=== PATIENT | female | born 1975 | race Caucasian/White ===

== ENCOUNTER → 2020-08-09 | Outpatient (CLI) | payer OTHER ==
--- NOTE | 2020-08-09 12:21 | REP ---
INDICATION: RIGHT BREAST 6 MO F/U/ABN MAMMO. COMPARISON: Comparison right breast mammography 02/08/2020, 02/01/2020, and 01/09/2017. TECHNIQUE: Routine views of the right breast are augmented by magnified focal spot-compression CC view, true mediolateral view, and 3D tomography. This mammogram was interpreted with the aid of an FDA-approved computer-aided detection system. FINDINGS: Scattered fibroglandular elements are noted. The area in question on the February 01, 2020 and February 08, 2020 prior mammography is seen to compress awaited normal appearing stromal elements. No spiculation or mass lesion is seen here sonography was previously negative and is not repeated. No suspicious mammographic abnormality. The [facility] volumetric breast density pattern is B. : IMPRESSION: BIRADS/ACR category 1 negative right breast mammographic findings. This patient's Tyrer-Cuzick lifetime breast cancer risk assessment score is 13.8%. RECOMMENDATION: Bilateral screening mammography can resume in the fall of 2020.. The patient letter being requested is M1. <Electronically signed by Martin Edwards > 08/09/20 [id number]
== END ==
LOC: M WHC 11:20
PROVIDERS: ATTEND Family Medicine
DX: R92.8 Other abnormal and inconclusive findings on diagnostic imaging of breast (principal)
CPT/HCPCS: 77065; G0279

== ENCOUNTER → 2020-10-01 | Outpatient (CLI) | payer OTHER ==
--- NOTE | 2020-10-01 13:43 | REPPI ---
INDICATION: M70.62 TROCHANTERIC BURSITIS OF LEFT HIP COMPARISON: None. TECHNIQUE: AP and frog-lateral views of the left hip FINDINGS: Generalized age-related changes include subtle increased sclerosis to the acetabulum with minimal spurring. No further overt osteoarthritic or significant degenerative changes are appreciated. No evidence for acute or healed injury. Surrounding soft tissues are normal. IMPRESSION: Mild generalized age-related changes. <Electronically signed by Hill Barriga > 10/01/20 [id number]
--- NOTE | 2020-10-01 13:52 | REPPI ---
INDICATION: M19.049 OSTEOARTHRITIS OF HAND UNSPECIFIED TYPE COMPARISON: None. TECHNIQUE: AP, lateral, bilateral oblique views right and left hand. FINDINGS: Right and left hand demonstrate mild relatively symmetric increased sclerosis and joint space narrowing at the interphalangeal joints. Remainder of the examination is normal bilaterally. No further overt osteoarthritic or inflammatory arthritic changes appreciated. IMPRESSION: Very mild degenerative changes at the interphalangeal joints. <Electronically signed by Hill Barriga > 10/01/20 [id number]
--- NOTE | 2020-10-01 14:10 | REPPI ---
INDICATION: M17.10 OSTEOARTHRITIS OF KNEE COMPARISON: None. TECHNIQUE: AP, lateral, bilateral oblique and sunrise views right and left knee. FINDINGS: Right knee demonstrates mild increased sclerosis to the tibial plateau and posterior patellar margin along with very subtle marginal spurring primarily involving the patella with joint space narrowing. No acute fracture or dislocation. No periarticular calcifications or chondrocalcinosis. No effusion. Left knee demonstrates cortical irregularity to the femoral condyles with minimal increased sclerosis along the tibial plateau and posterior patellar margin with minimal patellofemoral joint space narrowing. No periarticular calcifications or chondrocalcinosis. No effusion. No acute fracture or dislocation. IMPRESSION: Mild arthritic changes (right greater than left). <Electronically signed by Hill Barriga > 10/01/20 [id number]
== END ==
LOC: M PLAIMG 08:09
PROVIDERS: ATTEND Internal Medicine
DX: M17.10 Unilateral primary osteoarthritis, unspecified knee (principal); M19.049 Primary osteoarthritis, unspecified hand; M70.62 Trochanteric bursitis, left hip

== ENCOUNTER → 2020-12-21 | Outpatient (CLI) | payer OTHER ==
--- NOTE | 2020-12-21 13:04 | REP ---
INDICATION: S/P ABD TRAUMA, EVAL FOR ABNORMALITY/HEMATOMA. COMPARISON: None. TECHNIQUE: Real-time sonographic evaluation of right upper quadrant performed. FINDINGS: The gallbladder demonstrates no evidence of intraluminal sludge or calculi, wall thickening or pericholecystic fluid. There is no intrahepatic or extrahepatic biliary dilatation, common bile duct measures 5 mm in maximum diameter. The liver demonstrates homogeneous echotexture with no gross mass. The pancreas demonstrates homogeneous echotexture with no gross mass. The right kidney demonstrates no hydronephrosis, with a normal size of 13.0 cm in length. No free fluid is seen. IMPRESSION: Negative right upper quadrant ultrasound. <Electronically signed by Lazaro Lebron > 12/21/20 [id number]
== END ==
LOC: M RAD 12:29
PROVIDERS: ATTEND Physician Assistant
DX: S30.1XXA Contusion of abdominal wall, initial encounter (principal); X58.XXXA Exposure to other specified factors, initial encounter; Y92.9 Unspecified place or not applicable

== ENCOUNTER → 2021-03-18 | Outpatient (CLI) | payer OTHER ==
[~2021-03-18] MED LIST: GASTROGRAFIN SOLUTION 30ML (Q9963) As Ordered ONE; ISOVUE-370 76% 100ML VIAL As Ordered ONE
--- NOTE | 2021-03-18 13:27 | REP ---
INDICATION: CONTUSION OF ABD WALL, ABD PAIN. COMPARISON: None. TECHNIQUE: Standard helical technique after the intravenous administration of 100 cc Isovue 370 and oral bowel preparatory contrast administration. FINDINGS: The lung bases are clear. The liver, gallbladder, spleen, pancreas, adrenal glands, and right kidney are within normal limits. The left kidney is absent. The abdominal aorta and para-aortic regions are within normal limits. The bowel loops and the mesenteries are within normal limits. There is no evidence of free fluid or free air.. 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 IMPRESSION: There is no evidence of acute disease. 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 <Electronically signed by Stanford Trotter > 03/18/21 [id number]
== END ==
LOC: M RAD 10:56
PROVIDERS: ATTEND Physician Assistant
DX: R10.9 Unspecified abdominal pain (principal); S30.1XXD Contusion of abdominal wall, subsequent encounter
CPT/HCPCS: 74177; Q9963; Q9967

== ENCOUNTER → 2021-03-19 | Outpatient (CLI) | payer OTHER ==
--- NOTE | 2021-03-19 17:06 | REP ---
INDICATION: THYROID NODULES-XRAY AFTER. COMPARISON: None. TECHNIQUE: Real-time sonographic evaluation of the thyroid with Doppler FINDINGS: The right lobe of the thyroid gland measures 5.2 x 2.8 x 2.7 cm and the left lobe measures 5.5 x 1.5 x 1.8 cm. The isthmus measures 6 mm. In the right lobe of the thyroid gland there is a 2.9 x 2.2 x 2.2 cm sized solid nodule. In the inferior pole there is an additional 6 mm sized solid nodule. In the isthmus there is a 1 cm sized solid nodule. In the left lobe of the thyroid gland in the upper pole region there is a 1.3 cm sized nodule and in the midpole region there is a 1.2 cm sized nodule. IMPRESSION: Bilateral thyroid gland nodules as described above. Consider radio iodide 123 thyroid scintigraphy. <Electronically signed by Stanford Trotter > 03/19/21 [id number]
--- NOTE | 2021-03-19 20:37 | REP ---
INDICATION: THYROID NODULES-US APPT FIRST. COMPARISON: None. TECHNIQUE: Two views FINDINGS: The lungs are well inflated and clear. Heart mediastinum are unremarkable. The airway is not displaced from midline at the thoracic inlet. Bones are unremarkable. No free air. IMPRESSION: Normal chest. <Electronically signed by Orlando Abdi > 03/19/210
== END ==
LOC: M RAD 16:21
PROVIDERS: ATTEND Physician Assistant
DX: E04.1 Nontoxic single thyroid nodule (principal)

== ENCOUNTER → 2021-04-01 | Outpatient (REF) | payer OTHER | LOC: M LAB REF 19:13 | PROVIDERS: ATTEND Internal Medicine Endocrinology, Diabetes & Metabolism | DX: E04.2 Nontoxic multinodular goiter (principal) ==

== ENCOUNTER → 2021-06-05 | Outpatient (CLI) | payer OTHER | LOC: M PLAIMG 07:04 | PROVIDERS: ATTEND Internal Medicine | DX: M79.673 Pain in unspecified foot (principal) ==

== ENCOUNTER → 2021-06-17 | Outpatient (CLI) | payer OTHER ==
[~2021-06-17] MED LIST changes: -GASTROGRAFIN SOLUTION 30ML (Q9963) As Ordered ONE
== END ==
LOC: M RAD 13:02
PROVIDERS: ATTEND Family Medicine
DX: R59.0 Localized enlarged lymph nodes (principal); E07.9 Disorder of thyroid, unspecified
CPT/HCPCS: 70491; 71260; Q9967

== ENCOUNTER → 2021-08-29 | Outpatient (CLI) | payer OTHER | LOC: M WHC 13:27 | PROVIDERS: ATTEND Family Medicine | DX: Z12.31 Encounter for screening mammogram for malignant neoplasm of breast (principal) ==

== ENCOUNTER → 2021-10-05 | Outpatient (CLI) | payer OTHER | LOC: M LABSMTC 11:26 | PROVIDERS: ATTEND Anesthesiology | DX: Z01.818 Encounter for other preprocedural examination (principal); Z11.52 Encounter for screening for COVID-19 ==

== ENCOUNTER 2021-10-10 11:08 | Day surgery (SDC) | payer OTHER ==
[~2021-10-10] VITALS: Ht 172.7 cm; Wt 64.8 kg
[~2021-10-10 11:08] MED LIST changes: -ISOVUE-370 76% 100ML VIAL As Ordered ONE; +NS 1,000 ML IV ONE
[2021-10-10] MEDS ORDERED: SIMETHICONE 40MG/0.6ML DROPS 30ML As Ordered ONE (12:18)
[2021-10-10] MEDS ORDERED: propofoL 200 MG/20 ML VIAL As Ordered ONE (12:26)
[2021-10-10] MEDS ORDERED: LIDOCAINE 2% 100MG/5ML SDV (FOR ANES.) As Ordered ONE (12:26)
[2021-10-10 12:58] VITALS: BP 97/68
== END 2021-10-10 13:00 | disposition home or self-care (01) ==
LOC: M OPP 11:08
PROVIDERS: ATTEND Surgery
DX: Z12.11 Encounter for screening for malignant neoplasm of colon (principal); Z79.899 Other long term (current) drug therapy; Z88.0 Allergy status to penicillin; Z88.2 Allergy status to sulfonamides; Z88.6 Allergy status to analgesic agent

== ENCOUNTER → 2022-05-30 | Outpatient (CLI) | payer OTHER ==
[~2022-05-30] MED LIST changes: +ISOVUE-370 76% 100ML VIAL As Ordered ONE; -NS 1,000 ML IV ONE
[2022-05-30 14:41] LABS: BASO % 0.4 % (0.0-1.0); EOS # 0.1 10^3/uL (0.0-0.5); EOS % 1.2 % (0.0-3.0); HEMATOCRIT 41.2 % (36.0-47.0); HEMOGLOBIN 13.2 g/dl (12.0-15.5); LYMPH # 1.4 10^3/uL (1.5-5.0); LYMPH % 25.4 % (24.0-44.0); MEAN CORPUSCULAR HEMOGLOBIN 29.5 pg (27.0-33.0); MEAN CORPUSCULAR VOLUME 92.2 fl (80.0-96.0); MONO # 0.5 10^3/uL (0.0-0.8); MONO % 8.3 % (2.0-8.0); NEUTROPHILS # 3.7 10^3/uL (1.5-8.5); NEUTROPHILS % 64.7 % (36.0-66.0); PLATELET COUNT, AUTOMATED 210 10^3/uL (150-450); RED BLOOD COUNT 4.47 10^6/uL (4.00-5.40); WHITE BLOOD COUNT 5.7 10^3/uL (4.0-10.0)
[2022-05-30 15:02] LABS: ERYTHROCYTE SEDIMENTATION RATE 28 mm/hr (0-20)
[2022-05-30 15:12] LABS: C REACTIVE PROTEIN QUANTITATIV < 0.40 MG/DL (<1.0)
[2022-05-30 15:18] LABS: ALBUMIN 3.9 G/DL (3.2-5.2); ALKALINE PHOSPHATASE 79 U/L (46-116); ALT/SGPT 22 U/L (7.0-40); AST/SGOT 21 U/L (<34); BILIRUBIN,TOTAL 0.4 MG/DL (0.3-1.2); BLOOD UREA NITROGEN 14 MG/DL (9-23); CALCIUM LEVEL 9.4 MG/DL (8.5-10.1); CARBON DIOXIDE LEVEL 27 MMOL/L (20-31); CHLORIDE LEVEL 104 MMOL/L (98-107); CREATININE FOR GFR 0.75 MG/DL (0.55-1.30); FREE T4 1.04 NG/DL (0.89-1.76); GLOMERULAR FILTRATION RATE > 60.0 (>58); GLUCOSE, FASTING 92 MG/DL (60-100); POTASSIUM SERUM 4.2 MMOL/L (3.5-5.1); SODIUM LEVEL 139 MMOL/L (136-145); THYROID STIMULATING HORMONE 1.046 uIU/ML (0.55-4.78); TOTAL PROTEIN 7.3 G/DL (5.7-8.2)
== END ==
LOC: M LAB 13:58
PROVIDERS: ATTEND Nurse Practitioner Adult Health
DX: E04.2 Nontoxic multinodular goiter (principal); R22.1 Localized swelling, mass and lump, neck

== ENCOUNTER → 2022-06-03 | Outpatient (CLI) | payer OTHER | LOC: M RAD 09:05 | PROVIDERS: ATTEND Nurse Practitioner Adult Health | DX: R22.1 Localized swelling, mass and lump, neck (principal) ==

== ENCOUNTER → 2022-10-17 | Outpatient (CLI) | payer OTHER ==
[~2022-10-17] MED LIST changes: -ISOVUE-370 76% 100ML VIAL As Ordered ONE; +SYNT100T
== END ==
LOC: M WHC 07:36
PROVIDERS: ATTEND Family Medicine
DX: Z12.31 Encounter for screening mammogram for malignant neoplasm of breast (principal); N63.21 Unspecified lump in the left breast, upper outer quadrant

== ENCOUNTER → 2022-11-05 | Outpatient (CLI) | payer OTHER | LOC: M WHC 09:01 | PROVIDERS: ATTEND Family Medicine | DX: R92.8 Other abnormal and inconclusive findings on diagnostic imaging of breast (principal); N60.02 Solitary cyst of left breast ==

== ENCOUNTER → 2022-11-27 | Outpatient (CLI) | payer OTHER ==
[2022-11-27 17:47] LABS: FREE T4 1.22 NG/DL (0.89-1.76); THYROID STIMULATING HORMONE 1.348 uIU/ML (0.55-4.78)
[2022-11-27 17:51] LABS: TOTAL 25(OH) VITAMIN D 34.9 NG/ML (20.0-100.0)
== END ==
LOC: M WUC 14:39
PROVIDERS: ATTEND Family Medicine
DX: E89.0 Postprocedural hypothyroidism (principal)

== ENCOUNTER → 2023-03-11 | Outpatient (CLI) | payer OTHER ==
[2023-03-11 12:08] LABS: C REACTIVE PROTEIN QUANTITATIV < 0.40 MG/DL (<1.0)
[2023-03-11 12:10] LABS: ALBUMIN 3.7 G/DL (3.2-5.2); ALKALINE PHOSPHATASE 72 U/L (46-116); ALT/SGPT 11 U/L (7.0-40); AST/SGOT 13 U/L (<34); BILIRUBIN,TOTAL 0.7 MG/DL (0.3-1.2); BLOOD UREA NITROGEN 6 MG/DL (9-23); CALCIUM LEVEL 8.8 MG/DL (8.5-10.1); CARBON DIOXIDE LEVEL 28 MMOL/L (20-31); CHLORIDE LEVEL 106 MMOL/L (98-107); CREATININE FOR GFR 0.74 MG/DL (0.55-1.30); GLOMERULAR FILTRATION RATE > 60.0 (>58); GLUCOSE, FASTING 79 MG/DL (60-100); POTASSIUM SERUM 4.4 MMOL/L (3.5-5.1); SODIUM LEVEL 141 MMOL/L (136-145); THYROID STIMULATING HORMONE 0.611 uIU/ML (0.55-4.78); TOTAL 25(OH) VITAMIN D 47.6 NG/ML (20.0-100.0); TOTAL PROTEIN 6.6 G/DL (5.7-8.2)
== END ==
LOC: M PLALAB 07:53
PROVIDERS: ATTEND Family Medicine
DX: E89.0 Postprocedural hypothyroidism (principal); M79.604 Pain in right leg; M79.605 Pain in left leg

== ENCOUNTER → 2023-04-01 | Outpatient (CLI) | payer OTHER | LOC: M WHC 13:58 | PROVIDERS: ATTEND Orthopaedic Surgery | DX: Z13.820 Encounter for screening for osteoporosis (principal); Q76.0 Spina bifida occulta ==

== ENCOUNTER → 2023-04-07 | Outpatient (CLI) | payer OTHER | LOC: M WHC 11:39 | PROVIDERS: ATTEND Family Medicine | DX: N80.00 Endometriosis of the uterus, unspecified (principal) ==

== ENCOUNTER → 2023-09-28 | Outpatient (REF) | payer OTHER | LOC: M LAB REF 17:06 | PROVIDERS: ATTEND Family Medicine | DX: N23 Unspecified renal colic (principal) ==

== ENCOUNTER → 2023-10-23 | Outpatient (CLI) | payer OTHER | LOC: M WHC 08:37 | PROVIDERS: ATTEND Family Medicine | DX: Z12.31 Encounter for screening mammogram for malignant neoplasm of breast (principal) ==

== ENCOUNTER → 2024-01-11 | Outpatient (CLI) | payer OTHER ==
[~2024-01-11] MED LIST changes: +E-Z-GAS II EFFERVESCENT PACKET (SODIUM BICARB./CITRIC ACID/SIMETHICONE) As Ordered ONE; +E-Z-HD 98% w/w 340GM SUSP BTL As Ordered ONE; +E-Z-PAQUE 96% w/w SUSP 176GM BTL As Ordered ONE
== END ==
LOC: M RAD 07:35
PROVIDERS: ATTEND Otolaryngology
DX: J32.0 Chronic maxillary sinusitis (principal); J39.2 Other diseases of pharynx; R13.10 Dysphagia, unspecified

== ENCOUNTER → 2024-01-22 | Outpatient (CLI) | payer OTHER ==
[~2024-01-22] MED LIST changes: -E-Z-GAS II EFFERVESCENT PACKET (SODIUM BICARB./CITRIC ACID/SIMETHICONE) As Ordered ONE; -E-Z-HD 98% w/w 340GM SUSP BTL As Ordered ONE; -E-Z-PAQUE 96% w/w SUSP 176GM BTL As Ordered ONE
== END ==
LOC: M RAD 13:40
PROVIDERS: ATTEND Specialist
DX: R10.2 Pelvic and perineal pain (principal); N83.201 Unspecified ovarian cyst, right side; Q51.3 Bicornate uterus

== ENCOUNTER → 2024-05-20 | Outpatient (CLI) | payer OTHER | LOC: M RAD 11:29 | PROVIDERS: ATTEND Nurse Practitioner Adult Health | DX: R10.12 Left upper quadrant pain (principal); R10.32 Left lower quadrant pain ==

== ENCOUNTER → 2024-05-24 | Outpatient (CLI) | payer OTHER ==
[~2024-05-24] MED LIST changes: +ISOVUE-370 76% 100ML VIAL As Ordered ONE
== END ==
LOC: M RAD 07:33
PROVIDERS: ATTEND Nurse Practitioner Adult Health
DX: R10.12 Left upper quadrant pain (principal); K76.0 Fatty (change of) liver, not elsewhere classified
CPT/HCPCS: 74177; Q9967

== ENCOUNTER → 2024-06-23 | Outpatient (CLI) | payer OTHER ==
[~2024-06-23] MED LIST changes: -ISOVUE-370 76% 100ML VIAL As Ordered ONE
== END ==
LOC: M WHC 06:58
PROVIDERS: ATTEND Nurse Practitioner Adult Health
DX: K76.0 Fatty (change of) liver, not elsewhere classified (principal)

== ENCOUNTER → 2025-05-17 | Outpatient (CLI) | payer OTHER | LOC: M PLAIMG 10:15 | DX: J40 Bronchitis, not specified as acute or chronic (principal) ==